=== PATIENT | male | born 1975 | race Caucasian/White ===

== ENCOUNTER 2016-11-06 00:30 | Inpatient (IN) | payer MEDICARE, OTHER ==
--- NOTE | ~2016-11-06 | DS ---
Unit #: [id number] #: [id number] Patient: AZAM SIDHU JR [id number] [place] [address] [id number] MR#: [id number] NAME: AZAM SIDHU JR ROOM: P207 Age: 41 Sex: M Admission Date: 11/06/2016 : 1975 Discharge Date: 11/07/2016 Attending Physician: Freedom Carey M.D. DISCHARGE SUMMARY REASON FOR ADMISSION Azam is a 41-year-old man with a long history of alcohol dependence and multiple admissions to this facility. He came in reporting that he was not suicidal, but "felt like I want to because nobody will help me," although he has never complied with outpatient recommendations. Once discharge is affected, he was readmitted due to his inability to contract for safety. DIAGNOSTIC STUDIES LABORATORY RESULTS: Please see hospital chart. HOSPITAL COURSE The patient was admitted and placed on suicide precautions and the alcohol detox protocol. The following day, he became irritable, that large amounts of Ativan were not forthcoming for his detox protocol, although he was given the appropriate amounts according to the protocol and this was explained by nursing staff. Later in the day, he became further agitated and demanded discharge against medical advice, denying all suicidal ideation and stating that he "found a place." Due to his lack of cooperation with treatment, I felt the involuntary hospitalization was not appropriate and he was discharged at his request. DISCHARGE DIAGNOSES AXIS I: Alcohol dependence with withdrawal, uncomplicated, F10.230; substance-induced mood disorder. AXIS II: No diagnosis. AXIS III: Hypertension and gastroesophageal reflux disease. AXIS IV: AXIS V: DISCHARGE INSTRUCTIONS Follow up with chemical dependency programming as identified by the patient as well as primary care physician. DISCHARGE MEDICATIONS None. CONDITION AT DISCHARGE Fair. PROGNOSIS Fair. Unit #: [id number] #: [id number] Patient: AZAM SIDHU JR DIET AND ACTIVITY Ad jaclyn. Dictated by... Freedom Carey M.D. MRH/modl TD: 11/07/2016 15:02 JOB #: [id number] DISCHARGE SUMMARY Page 1 of 1 X Freedom Carey MD DISCHARGE SUMMARY
--- NOTE | ~2016-11-06 | PA ---
Unit #: [id number] #: [id number] Patient: AZAM SIDHU JR [id number] [place] [address] [id number] I MR#: [id number] NAME: AZAM SIDHU JR ROOM: P207 Age: 41 Sex: M Admission Date: 11/06/2016 : 1975 Date of Assessment: Attending Physician: Freedom Carey M.D. Admitting Physician: Freedom Carey M.D. PSYCHIATRIC ASSESSMENT INFORMANTS The patient, partially reliable; family reliable. CHIEF COMPLAINT "I can't take this substance abuse anymore, no one wants to help me." HISTORY OF PRESENT ILLNESS Sergey is a 41-year-old man with the above chief complaint with a history of alcohol dependence, who says he is unable to maintain sobriety. He says he does not want to kill himself but says "no one will help me." He was admitted for detox and stabilization. PAST PSYCHIATRIC HISTORY Last admission in this facility was in 05/2016 with multiple admissions previously. FAMILY PSYCHIATRIC HISTORY Extensive family history of alcoholism. SOCIAL HISTORY The patient suffered a closed head injury on the job as a long-term disability. He is currently living with his family and is unmarried. PAST MEDICAL HISTORY GERD, hypertension, and closed head injury. MEDICATIONS Please see his MAR. ALLERGIES Amoxicillin and penicillin. SUBSTANCE USE HISTORY The patient has a history of alcohol dependence as noted. MENTAL STATUS EXAMINATION Azam presented as a disheveled man, who appeared older than his stated age. He stood 6 feet 0 inch tall, weighing 200 pounds. Vital signs; temperature 98.6, pulse 97, respirations 20, and blood pressure 168/100. His speech was soft, sparse, easily understood. Musculoskeletal examination demonstrated mild psychomotor agitation. His mood was irritable with a congruent affect. He was alert and fully oriented. His memory and concentration were fair to good. His thought processes were Unit #: [id number] #: [id number] Patient: AZAM SIDHU JR logical with no active psychosis. He denied active suicidal ideation, intent, or plan. Insight and judgment, fair. Fund of knowledge and abstraction, fair. ASSETS AND LIABILITIES The patient knows local resources and presents voluntarily for treatment. Liabilities include noncompliance with followup and frequent relapses. ADMITTING DIAGNOSES AXIS I: Alcohol dependence with withdrawal, uncomplicated; substance- induced mood disorder. AXIS II: No diagnosis. AXIS III: Gastroesophageal reflux disease, hypertension. AXIS IV: AXIS V: PSYCHIATRIC PLAN The patient was admitted and placed on alcohol detox protocol and suicide precautions. His home medications will be restarted. He will enroll in psychotherapy groups and activities with dual diagnosis focus. Treatment goals resolution of intoxication, improvement in insight, and improvement in coping skills. DISCHARGE PLANNING Follow up with community mental health and chemical dependence resources. ESTIMATED LENGTH OF STAY 5 days. Dictated by... Freedom Carey M.D. IRIS/carri TD: 11/07/2016 19:11 JOB #: [id number] PSYCHIATRIC ASSESSMENT Page 1 of 1 X Freedom Carey MD PSYCHIATRIC ASSESSMENT
--- NOTE | ~2016-11-06 | HP ---
Unit #: [id number] #: [id number] Patient: AZAM SIDHU JR [id number] [place] [address] [id number] I MR#: [id number] NAME: AZAM SIDHU JR ROOM: P207 Age: 41 Sex: M Admission Date: 11/06/2016 : 1975 Attending Physician: Freedom Carey M.D. Admitting Physician: Freedom Carey M.D. Primary Care Physician: Generic Doctor Not In System HISTORY AND PHYSICAL HISTORY OF PRESENT ILLNESS Azam is a 41 year old admitted to [address] [place] [address] because of his polysubstance abuse which includes alcohol, opioids and benzodiazepines. PAST MEDICAL HISTORY 1. Long history of illicit substance abuse. 2. History of CHI, 2008. PAST SURGICAL HISTORY Right shoulder. ALLERGIES Penicillin. SOCIAL HISTORY Smokes 2 pack per day. Drinks case of beer on a daily basis. Admits to illicit substance abuse. FAMILY HISTORY Medically noncontributory. REVIEW OF SYSTEMS CONSTITUTIONAL: No fever or chills. HEENT: Denies any sore throat, ear pain or runny nose. CARDIOVASCULAR: Denies chest pain, irregular heart rhythm or palpitations. CHEST: Denies shortness of breath or cough. No hemoptysis. GASTROINTESTINAL: Denies nausea, vomiting, diarrhea or chronic constipation. ENDOCRINE: Denies history of increased thirst or urination. No recent significant weight loss or gain. GENITOURINARY: Denies dysuria, frequency, or hematuria. SKIN: Denies any rashes. HEMATOLOGIC: Denies history of increased bleeding or bruising. MUSCULOSKELETAL: Denies any hot, swollen joints. No generalized muscle pain. NEUROLOGIC: Denies problems with vision or speech. No frequent, severe headaches. No numbness, tingling or weakness in any extremities. Denies loss of bladder or bowel control. CURRENT MEDICATIONS Detox protocol. PHYSICAL EXAMINATION Unit #: [id number] #: [id number] Patient: AZAM SIDHU JR GENERAL: Alert, well-nourished, in no apparent distress. VITAL SIGNS: Blood pressure 130/94, heart rate 100, respirations 16, temperature 98.6. WEIGHT: 200. HEIGHT: 6 feet 0 inches. SKIN: Warm and dry without rash or lesion. HEENT: Normocephalic. TMs not viewed. Oral and nasal passages clear. Conjunctivae clear. PERRLA. EOMs intact. NECK: Supple without lymphadenopathy or thyromegaly. HEART: Regular rate and rhythm without murmur. LUNGS: Clear. ABDOMEN: Soft, nontender. : Not done. EXTREMITIES: No evidence of cyanosis, clubbing or edema. Moves all without focal deficit. NEUROLOGICAL: Grossly within normal limits. Cranial Nerves: II: Visual callahan are intact. III, IV AND : Extraocular movements are intact. Pupils are equal, round and reactive to light. V: Facial sensation is grossly normal. VII: Facial movements and expression are normal. VIII: Auditory acuity grossly intact. IX, X: Uvula is midline. Phonation is normal. XI: Patient shrugs shoulders and turns head normally. XII: Tongue protrudes in the midline. Sensory and Motor Function: Sensory and motor sensation is grossly normal. Motor: moves all extremities well. Coordination: Gait is normal. Deep Tendon Reflexes: Intact. IMPRESSION Psychiatric admission. RECOMMENDATIONS PSYCHIATRIC: Per psychiatrist. MEDICAL: See no contraindications to participate in facility's activities. MEDICAL PROGNOSIS Good. MEDICAL CONDITION Stable. Dictated by... Linda Pardo P.A.-C. for Martin Garza/rosa TD: 11/06/2016 23:10 JOB #: [id number] Unit #: [id number] #: [id number] Patient: AZAM SIDHU JR HISTORY AND PHYSICAL Page 1 of 1 X Linda Pardo X HISTORY AND PHYSICAL
== END 2016-11-07 13:30 | disposition home or self-care (01) | DRG 897 ==
LOC: P2S 00:30
PROC: HZ2ZZZZ Detoxification Services for Substance Abuse Treatment (ICD-10-PCS; principal; 2016-11-06)
DX: F10.239 Alcohol dependence with withdrawal, unspecified (principal); F19.24 Other psychoactive substance dependence with psychoactive substance-induced mood disorder; I10 Essential (primary) hypertension; K21.9 Gastro-esophageal reflux disease without esophagitis; F17.210 Nicotine dependence, cigarettes, uncomplicated; Z88.0 Allergy status to penicillin
CPT/HCPCS: 86592

== ENCOUNTER 2016-12-08 09:00 | Inpatient (IN) | payer MEDICARE, OTHER ==
--- NOTE | ~2016-12-08 | PA ---
Unit #: [id number] #: [id number] Patient: SAYDA SIDHU JR [id number] [place] [address] [id number] I MR#: [id number] NAME: SAYDA SIDHU JR ROOM: P210 Age: 41 Sex: M Admission Date: 12/08/2016 : 1975 Date of Assessment: 12/09/2016 Attending Physician: Freedom Carey M.D. Admitting Physician: Freedom Carey M.D. Primary Care Physician: Generic Doctor Not In System PSYCHIATRIC ASSESSMENT DATE OF ASSESSMENT 12/09/2016. INFORMANTS The patient, partially reliable; OLOP, reliable. CHIEF COMPLAINT "I came in for alcohol withdrawals." HISTORY OF PRESENT ILLNESS Mr. Sidhu is a 41-year-old man with a history of alcohol dependence and several admissions to this facility for detox. He reports drinking up to a fifth of vodka or whiskey daily and has blackouts and chronic detox symptomatology when he is not drinking. He also complained of a recent fall, which was evaluated at the referring hospital. He had no suicidal ideation, intent, or plan and was admitted for alcohol detox. PAST PSYCHIATRIC HISTORY Last admission in this facility was in 10/2016. He has had multiple admissions previously with minimal sobriety time outside of the hospital. FAMILY PSYCHIATRIC HISTORY There is an extensive family history of alcoholism. SOCIAL HISTORY The patient suffered a closed head injury on the job and is now on long-term disability. He is unmarried and living with his family. PAST MEDICAL HISTORY Significant for hypertension, GERD, history of a closed head injury, and history of a recent fall with suspected rib fracture on the right side. MEDICATIONS Please see MAR. ALLERGIES Amoxicillin and penicillin. SUBSTANCE ABUSE HISTORY Significant for alcohol dependence. MENTAL STATUS EXAMINATION Mr. Sidhu presented as a mildly disheveled man who appeared older than his stated age. He was irritable and uncooperative with the examination. His Unit #: [id number] #: [id number] Patient: SAYDA SIDHU JR speech was spontaneous and easily understood. Musculoskeletal examination demonstrated mild psychomotor agitation. His mood was irritable with a congruent affect. He was alert and fully oriented. His memory and concentration were fair. His thought processes were logical with no active psychosis. He denied suicidal ideation, intent, or plan. Insight and judgment were fair. Fund of knowledge and abstraction were fair. ASSETS AND LIABILITIES The patient presents voluntarily for treatment and has medical insurance. Liabilities include difficulty maintaining sobriety, reduced psychosocial support. ADMITTING DIAGNOSES AXIS I: Alcohol dependence with withdrawal, uncomplicated, F10.230. AXIS II: No diagnosis. AXIS III: Hypertension, gastroesophageal reflux disease, recent fall. AXIS IV: AXIS V: PSYCHIATRIC PLAN The patient was admitted and placed on the alcohol detox protocol. The patient demanded that he be given narcotic pain medications for his ongoing pain related to his fall, but his referring hospital records were reviewed and this request was denied due to his long history of chemical dependence. The patient then stated that he did not want to stay in the hospital anymore and then he was going to "go to [facility], where I can get some pain medicines." He once again contracted for safety in the outpatient setting and was discharged at his request. Dictated by... Martin Casey/carri TD: 12/11/2016 23:59 JOB #: [id number] PSYCHIATRIC ASSESSMENT Page 1 of 1 X Freedom Carey MD PSYCHIATRIC ASSESSMENT
--- NOTE | ~2016-12-08 | DS ---
Unit #: [id number] #: [id number] Patient: AZAM SIDHU JR [id number] [facility] [address] [place] [address] [id number] I MR#: [id number] NAME: AZAM SIDHU JR ROOM: P210 Age: 41 Sex: M Admission Date: 12/08/2016 : 1975 Discharge Date: 12/09/2016 Attending Physician: Freedom Carey M.D. Primary Care Physician: Generic Doctor Not In System DISCHARGE SUMMARY REASON FOR ADMISSION Azam is a 41-year-old man who initially presented to an [facility] reporting increasing intoxication and the need for assessment. He was evaluated for a recent fall with upper right abdominal pain, but lacerations were ruled out. He was transferred to [facility] for inpatient detox with no suicidal ideation, intent, or plan. DIAGNOSTIC STUDIES LABORATORY RESULTS: Please see hospital chart. HOSPITAL COURSE Azam was admitted and placed on the alcohol detox protocol. He made multiple demands for pain medications of a narcotic nature throughout his hospitalization, and also requested a referral to the [facility] in [place]; however, he was unwilling to work with his social scientist on obtaining this placement, and demanded to leave the hospital, so that he could "go to [facility] and get some pain medications." Despite our recommendations to stay and complete detox, he declined and was discharged at his request. DISCHARGE DIAGNOSES AXIS I: Alcohol dependence with withdrawal, uncomplicated. AXIS II: No diagnosis. AXIS III: Hypertension, gastroesophageal reflux disease, recent fall. AXIS IV: AXIS V: DISCHARGE INSTRUCTIONS Follow up with [facility] and [facility]. DISCHARGE MEDICATIONS None. CONDITION AT DISCHARGE Fair. PROGNOSIS Fair. DIET AND ACTIVITY Ad jaclyn. Unit #: [id number] #: [id number] Patient: AZAM SIDHU JR Dictated by... Freedom Carey M.D. MRH/modl TD: 12/11/2016 21:01 JOB #: [id number] DISCHARGE SUMMARY Page 1 of 1 X Freedom Carey MD X DISCHARGE SUMMARY
--- NOTE | ~2016-12-08 | HP ---
Unit #: [id number] #: [id number] Patient: AZAM SIDHU JR [id number] [place] [address] [id number] I MR#: [id number] NAME: AZAM SIDHU JR ROOM: P210 Age: 41 Sex: M Admission Date: 12/08/2016 : 1975 Attending Physician: Freedom Carey M.D. Admitting Physician: Freedom Carey M.D. Primary Care Physician: Generic Doctor Not In System HISTORY AND PHYSICAL Azam is a 41 year old who was admitted and discharged within the first 24 hours. He was not seen for an H and P. Dictated by... Linda Pardo P.A.-C. for Martin Garza/rosa TD: 12/09/2016 17:07 JOB #: [id number] HISTORY AND PHYSICAL Page 1 of 1 X Linda Pardo X HISTORY AND PHYSICAL
[2016-12-09 09:39] LABS: BASOPHIL# 0.1 X10e3 (0-0.3); BASOPHIL% 1.1 % (0-2.5); EOSINOPHIL# 0.6 X10e3 (0-0.7); EOSINOPHIL% 10.2 % (0.0-7.0); HEMATOCRIT 40.9 % (38.0-50.0); HEMOGLOBIN 13.7 gm/dL (13.0-16.0); LYMPHOCYTE# 2.1 X10e3 (1.0-3.5); LYMPHOCYTE% 34.6 % (17.0-45.0); MEAN CELL VOLUME 86.4 FL (83-96); MEAN CORPUSCULAR HGB CONC 33.6 g/dL (30-36); MONOCYTE# 0.7 X10e3 (0-1.0); MONOCYTE% 12.1 % (3.0-12.0); NEUTROPHIL# 2.5 X10e3 (1.5-7.1); PLATELET COUNT 344 X10e3 (140-420); RED BLOOD COUNT 4.73 X10e (3.90-5.60); RED CELL DISTRIBUTION WIDTH 14.9 % (11.0-15.5)
[2016-12-09 10:05] LABS: DIFF IND NO
[2016-12-09 11:08] LABS: ALBUMIN SERUM 4.3 g/dL (3.5-5.0); BILIRUBIN,TOTAL 0.8 mg/dL (0.2-2.0); BUN/CREATININE RATIO 18.57; CREATININE SERUM 0.7 mg/dL (0.6-1.4); GLOM FILT RATE Estimated 118.1 mL/min (>60); POTASSIUM 3.8 mmol/L (3.5-5.1); PROTEIN TOTAL SERUM 7.1 g/dL (6.0-8.3)
== END 2016-12-09 11:28 | disposition home or self-care (01) | DRG 897 ==
LOC: P2S 17:15
PROVIDERS: Psychiatry & Neurology Psychiatry
PROC: HZ2ZZZZ Detoxification Services for Substance Abuse Treatment (ICD-10-PCS; principal; 2016-12-08)
DX: F10.230 Alcohol dependence with withdrawal, uncomplicated (principal); I10 Essential (primary) hypertension; K21.9 Gastro-esophageal reflux disease without esophagitis
CPT/HCPCS: 80053; 85025; 86592

== ENCOUNTER 2017-01-18 18:00 | Inpatient (IN) | payer MEDICARE, OTHER ==
--- NOTE | ~2017-01-18 | HP ---
Unit #: [id number] #: [id number] Patient: AZAM SIDHU JR [id number] [place] [address] [id number] I MR#: [id number] NAME: AZAM SIDHU JR ROOM: P182 Age: 41 Sex: M Admission Date: 01/18/2017 : 1975 Attending Physician: Freedom Carey M.D. Admitting Physician: Freedom Carey M.D. Primary Care Physician: Shaheen Doctor Not In System HISTORY AND PHYSICAL HISTORY OF PRESENT ILLNESS Azam is a 41 year old admitted to [facility] because of his continued abuse of alcohol. He has had other admissions to this facility for the same. PAST MEDICAL HISTORY 1. Long history of illicit substance abuse. 2. History of alcohol abuse. 3. History of CHI, 2008. 4. Patient gives history of TB. PAST SURGICAL HISTORY Right shoulder. ALLERGIES Penicillin. SOCIAL HISTORY Smokes 2 packs per day. Drinks a case of beer on a daily basis. Admits to illicit substance abuse. FAMILY HISTORY Medically noncontributory. REVIEW OF SYSTEMS CONSTITUTIONAL: No fever or chills. HEENT: Denies any sore throat, ear pain or runny nose. CARDIOVASCULAR: Denies chest pain, irregular heart rhythm or palpitations. CHEST: Denies shortness of breath or cough. No hemoptysis. GASTROINTESTINAL: Denies nausea, vomiting, diarrhea or chronic constipation. ENDOCRINE: Denies history of increased thirst or urination. No recent significant weight loss or gain. GENITOURINARY: Denies dysuria, frequency, or hematuria. SKIN: Denies any rashes. HEMATOLOGIC: Denies history of increased bleeding or bruising. MUSCULOSKELETAL: Denies any hot, swollen joints. No generalized muscle pain. NEUROLOGIC: Denies problems with vision or speech. No frequent, severe headaches. No numbness, tingling or weakness in any extremities. Denies loss of bladder or bowel control. CURRENT MEDICATIONS 1. Detox protocol. Unit #: [id number] #: [id number] Patient: AZAM SIDHU JR 2. Zyprexa 20 mg q.h.s. 3. Milk of Magnesia p.r.n. 4. Maalox p.r.n. 5. Tylenol p.r.n. 6. Zebeta 5 mg daily. 7. Isoniazid 300 mg daily. 8. Multivitamin 1 daily. PHYSICAL EXAMINATION GENERAL: Alert, well-nourished, in no apparent distress. VITAL SIGNS: Blood pressure 178/105, heart rate 80, respirations 16, temperature 98.6. WEIGHT: 217. HEIGHT: 6 feet 0 inches. SKIN: Warm and dry without rash or lesion. HEENT: Normocephalic. TMs not viewed. Oral and nasal passages clear. Conjunctivae clear. PERRLA. EOMs intact. NECK: Supple without lymphadenopathy or thyromegaly. HEART: Regular rate and rhythm without murmur. LUNGS: Clear. ABDOMEN: Soft, nontender. : Not done. EXTREMITIES: No evidence of cyanosis, clubbing or edema. Moves all without focal deficit. NEUROLOGICAL: Grossly within normal limits. Cranial Nerves: II: Visual callahan are intact. III, IV AND : Extraocular movements are intact. Pupils are equal, round and reactive to light. V: Facial sensation is grossly normal. VII: Facial movements and expression are normal. VIII: Auditory acuity grossly intact. IX, X: Uvula is midline. Phonation is normal. XI: Patient shrugs shoulders and turns head normally. XII: Tongue protrudes in the midline. Sensory and Motor Function: Sensory and motor sensation is grossly normal. Motor: moves all extremities well. Coordination: Gait is normal. Deep Tendon Reflexes: Intact. IMPRESSION 1. Psychiatric admission. 2. History of TB. Patient is currently being treated. 3. History of alcohol abuse. 4. History of illicit substance abuse. RECOMMENDATIONS PSYCHIATRIC: Per psychiatrist. MEDICAL: 1. See no contraindications to participate in facility's activities. 2. Detox per protocol. 3. Continue Zebeta and isoniazid. MEDICAL PROGNOSIS Good. MEDICAL CONDITION Stable. Unit #: [id number] #: [id number] Patient: AZAM SIDHU JR Dictated by... Linda Pardo P.A.-C. for Martin Garza/rosa TD: 01/19/2017 18:49 JOB #: [id number] HISTORY AND PHYSICAL Page 1 of 1 X Linda Pardo X HISTORY AND PHYSICAL
--- NOTE | ~2017-01-18 | DS ---
Unit #: [id number] #: [id number] Patient: SAYDA SIDHU JR [id number] [place] [address] [id number] I MR#: [id number] NAME: SAYDA SIDHU JR ROOM: P182 Age: 41 Sex: M Admission Date: 01/18/2017 : 1975 Discharge Date: 01/20/2017 Attending Physician: Freedom Carey M.D. Primary Care Physician: Generic Doctor Not In System DISCHARGE SUMMARY REASON FOR ADMISSION Mr. Sidhu is a 42-year-old man with a history of alcohol dependence, who presented after further relapse and stated he needed to detox. He had no suicidal ideation, intent, or plan and was admitted for alcohol detox. LABORATORY DATA Please see hospital chart. HOSPITAL COURSE The patient was admitted and placed on the detox protocol for alcohol. As usual, he expressed dissatisfaction with the amount of Ativan that he was receiving, and stated that he "needed more for my anxiety" this was declined, and later the following day, the patient went to the nurses station requesting discharge against medical advice stating he felt that our detox system was ineffective for him. As he lacked criteria for involuntary hospitalization, his request was granted. DISCHARGE DIAGNOSIS AXIS I: Alcohol dependence. AXIS II: No diagnosis. AXIS III: Hypertension and GERD. AXIS IV: AXIS V: DISCHARGE INSTRUCTIONS The patient to follow up with CD programing of your choice. DISCHARGE MEDICATIONS None. CONDITION AT DISCHARGE Fair. PROGNOSIS Fair. DIET AND ACTIVITY Ad jaclyn. Dictated by... Freedom Carey M.D. Unit #: [id number] #: [id number] Patient: SAYDA SIDHU JR MR/modl TD: 02/05/2017 13:48 JOB #: [id number] DISCHARGE SUMMARY Page 1 of 1 X Freedom Carey MD X DISCHARGE SUMMARY
--- NOTE | ~2017-01-18 | PA ---
Unit #: [id number] #: [id number] Patient: SAYDA SIDHU JR [id number] [place] [address] [id number] I MR#: [id number] NAME: SAYDA SIDHU JR ROOM: P182 Age: 41 Sex: M Admission Date: 01/18/2017 : 1975 Date of Assessment: Attending Physician: Freedom Carey M.D. Admitting Physician: Freedom Carey M.D. Primary Care Physician: Generic Doctor Not In System PSYCHIATRIC ASSESSMENT INFORMANTS The patient partially reliable; OLOP, reliable. CHIEF COMPLAINT Alcohol detox. HISTORY OF PRESENT ILLNESS The patient is a 41-year-old man with a history of alcohol dependence and multiple admissions. He reported recent relapse and stated he needed to come in and detox again. He had no suicidal ideation, intent, or plan. PAST PSYCHIATRIC HISTORY Multiple admissions to this facility, although he has minimal success in maintaining sobriety outside of the hospital. FAMILY PSYCHIATRIC HISTORY There is an extensive family history of alcohol dependence. SOCIAL HISTORY The patient is unmarried, and living with his family. He is on long-term disability for close head injury. PAST MEDICAL HISTORY Significant for hypertension, GERD, and history of fractures sustained in falls while intoxicated. MEDICATIONS Please see MAR. ALLERGIES Amoxicillin and penicillin. SUBSTANCE ABUSE HISTORY Significant for alcohol dependence. MENTAL STATUS EXAMINATION The patient was presented as a mildly disheveled man, who appeared older than his stated age. He was irritable, and otherwise cooperative with the examination. Speech was sparse. Musculoskeletal examination demonstrated mild psychomotor agitation. His mood was irritable with a congruent affect. He was alert and fully oriented with no psychosis, confusion, disorientation, or suicidal or homicidal ideation. Unit #: [id number] #: [id number] Patient: SAYDA SIDHU JR ASSETS AND LIABILITIES The patient presents voluntarily for treatment. Liabilities include chronic alcohol abuse. ADMITTING DIAGNOSIS AXIS I: Alcohol dependence with withdrawal, uncomplicated. AXIS II: No diagnosis. AXIS III: Hypertension and GERD. AXIS IV: AXIS V: PSYCHIATRIC PLAN The patient was admitted and placed on alcohol detox protocol. As is typical, the patient requested "more Ativan," and pain medications after admission, which were both declined. He will enroll in psychotherapy groups and activities. TREATMENT GOALS Resolution of intoxication, improvement in insight, and improvement in coping skills. DISCHARGE PLANNING Follow up with chemical dependence programing of the patient's choice. ESTIMATED LENGTH OF STAY 5 days. Dictated by... Martin Casey/carri TD: 02/05/2017 13:49 JOB #: [id number] PSYCHIATRIC ASSESSMENT Page 1 of 1 X Freedom Carey MD X PSYCHIATRIC ASSESSMENT
[2017-01-19 09:36] LABS: BASOPHIL# 0.1 X10e3 (0-0.3); BASOPHIL% 0.9 % (0-2.5); EOSINOPHIL# 0.3 X10e3 (0-0.7); EOSINOPHIL% 4.3 % (0.0-7.0); HEMATOCRIT 44.4 % (38.0-50.0); LYMPHOCYTE# 2.5 X10e3 (1.0-3.5); LYMPHOCYTE% 39.4 % (17.0-45.0); MEAN CELL VOLUME 85.8 FL (83-96); MEAN CORPUSCULAR HGB CONC 33.9 g/dL (30-36); MEAN PLATELET VOLUME 7.8 FL (6.5-11.5); MONOCYTE% 14.8 % (3.0-12.0); NEUTROPHIL# 2.6 X10e3 (1.5-7.1); NEUTROPHIL% 40.6 % (40-75); PLATELET COUNT 333 X10e3 (140-420); RED BLOOD COUNT 5.17 X10e (3.90-5.60); RED CELL DISTRIBUTION WIDTH 13.9 % (11.0-15.5); WHITE BLOOD COUNT 6.5 X10e3 (4.0-10.5)
[2017-01-19 09:37] LABS: DIFF IND NO
[2017-01-19 09:49] LABS: ALBUMIN SERUM 4.7 g/dL (3.5-5.0); BILIRUBIN,TOTAL 0.9 mg/dL (0.2-2.0); BUN/CREATININE RATIO 18.88; CALCIUM SERUM 9.7 mg/dL (8.4-10.2); CREATININE SERUM 0.9 mg/dL (0.6-1.4); GLOM FILT RATE Estimated 106.5 mL/min (>60); POTASSIUM 4.1 mmol/L (3.5-5.1); PROTEIN TOTAL SERUM 7.9 g/dL (6.0-8.3)
[2017-01-21 09:54] LABS: URINE APPEARANCE CLEAR; URINE BILIRUBIN NEG (NEG); URINE BLOOD NEG (NEG); URINE COLOR DK YELLOW; URINE GLUCOSE NEG (NEG); URINE KETONE NEG (NEG); URINE LEUKOCYTE ESTERASE TRACE (NEG); URINE NITRATE NEG (NEG); URINE PH 6.5 (5-8); URINE PROTEIN NEG (NEG); URINE SPECIFIC GRAVITY 1.009 (1.003-1.035); URINE UROBILINOGEN 0.2 MG/DL (NEG)
[2017-01-21 10:00] LABS: URBCS1 AUWI 0-2 /[HPF] (0-2); URINE BACTERIA AUWI NEG (NEGATIVE); URINE SQUAMOUS EPITHELIAL CELL NONE SEEN /[HPF]; UWBCS1 AUWI 0-2 (0-5)
[2017-01-21 10:19] LABS: AMPHETAMINE NEG (NEG); BARBITURATES NEG (NEG); BENZODIAZEPINES NEG (NEG); COCAINE NEG (NEG); MARIJUANA NEG (NEG); OPIATES NEG (NEG); TRICYCLIC ANTIDEPRESSANTS NEG (NEG); U METHADONE NEG (NEG)
== END 2017-01-20 18:50 | disposition home or self-care (01) | DRG 897 ==
LOC: P1E 20:19
PROVIDERS: Psychiatry & Neurology Psychiatry
PROC: HZ2ZZZZ Detoxification Services for Substance Abuse Treatment (ICD-10-PCS; principal; 2017-01-18)
DX: F10.230 Alcohol dependence with withdrawal, uncomplicated (principal); I10 Essential (primary) hypertension; F17.210 Nicotine dependence, cigarettes, uncomplicated; Z88.0 Allergy status to penicillin; K21.9 Gastro-esophageal reflux disease without esophagitis; Z86.11 Personal history of tuberculosis
CPT/HCPCS: 80053; 80307; 81003; 85025; 86592